=== PATIENT | female | born 1950 | race Caucasian/White ===

== ENCOUNTER 2024-04-16 19:39 | Emergency (ER) | payer MEDICARE, OTHER ==
[~2024-04-16] VITALS: Ht 172.7 cm; Wt 61.7 kg
[2024-04-16 20:00] LABS: BASOPHILS 1.5 % (0-2); EOSINOPHILS 1.6 % (0-6); LYMPHOCYTES 26.3 % (24-44); MCH 30.6 (27-36); MCHC 33.4 g/dl (30-36); MCV 91.8 fl (81-99); MONOCYTES 6.1 % (0-12); NEUTROPHILS 64.5 % (39-80); PLATELET COUNT 346 K/uL (140-440); RBC 5.23 M/ul (4.3-5.7); RDW 14.7 (10.5-15.0)
[2024-04-16] MEDS ORDERED: LORazepam 2 MG/ML VIAL IV ONE (20:00)
[2024-04-16 20:18] LABS: ALBUMIN 3.7 g/dL (3.4-5.0); ALBUMIN/GLOBULIN RATIO 0.88 (1.1-2.4); ANION GAP 18.1 (7-21); BILIRUBIN, TOTAL 0.8 ng/dL (0.2-1.0); BUN/CREATININE RATIO 10.2 (6.0-28.6); CALCIUM 9.4 mg/dL (8.5-10.1); CREATININE, SERUM 1.47 mg/dL (0.55-1.02); MAGNESIUM 1.9 mg/dL (1.8-2.4); POTASSIUM 4.1 mmol/L (3.5-5.1); PROTEIN, TOTAL 7.9 g/dL (6.4-8.2)
[2024-04-16 20:45] LABS: INFLUENZA B NAA NEGATIVE (NEGATIVE); RESPIRATORY SYNCYTIAL VIR NAA NEGATIVE (NEGATIVE)
[2024-04-16] MEDS ORDERED: LACTATED RINGER'S 1,000 ML IV ONE (21:00)
--- OUTSIDE RECORDS SUMMARY | 2024-04-16 21:23 | XMS ---
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 E.DAnum VISIT COUNT (12 MO.) 2 Daron Jurado ([place]) [address] ([place]) TOTAL 4 NOTE: Visits indicate total known visits. ED/UCC VISIT TRACKING (12 MO.) 04/16/2024 19:40 [facility] [place] TYPE: Emergency COMPLAINT: - SOB 04/04/2024 17:02 [facility] [place] ([place]) TYPE: Emergency DIAGNOSES: - Auditory hallucinations - Delusional disorders - Hypokalemia - altered mental - Altered Mental Status 02/08/2024 16:51 [facility] ([place]) TYPE: Emergency DIAGNOSES: - Presence of right artificial knee joint - Sprain of unspecified site of right knee, initial encounter - Knee pain - Knee Swelling 05/24/2023 11:08 [facility] ([facility]) TYPE: Emergency DIAGNOSES: - Epigastric pain - Low back pain, unspecified - Unspecified urinary incontinence - Back Pain - Incontinence - Incontinence, bilat. leg cramps, sent by express - Leg Pain INPATIENT VISIT TRACKING (12 MO.) 04/05/2024 18:51 [facility] TYPE: Psychiatric Services DIAGNOSES: 0. Major depressive disorder, recurrent, severe with psychotic symptoms 1. Major depressive disorder, recurrent, severe with psychotic symptoms 2. Essential (primary) hypertension 2. Headache, unspecified 2. Hypothyroidism, unspecified 2. Suicidal ideations [email or web address]
[2024-04-16 22:14] LABS: BILIRUBIN, URINE POSITIVE (negative); BLOOD/HGB, URINE NEGATIVE (Negative); KETONE, URINE TRACE (Negative); LEUK ESTERASE, URINE NEGATIVE (negative); NITRITE, URINE NEGATIVE (negative)
[2024-04-16 23:00] VITALS: BP 121/62
[2024-04-16 23:04] LABS: AMPHETAMINES, URINE NEGATIVE (NEGATIVE); BARBITURATES, URINE NEGATIVE (NEGATIVE); BENZODIAZEPINE, URINE NEGATIVE (NEGATIVE); BUPRENORPHINE, URINE NEGATIVE (NEGATIVE); CANNABINOID, URINE NEGATIVE (NEGATIVE); ECSTASY, URINE NEGATIVE (NEGATIVE); FENTANYL, URINE NEGATIVE (NEGATIVE); METHADONE, URINE NEGATIVE (NEGATIVE); OPIATES, URINE NEGATIVE (NEGATIVE); OXYCODONE, URINE NEGATIVE (NEGATIVE); PHENCYCLIDINE, URINE NEGATIVE (NEGATIVE)
[2024-04-16 23:15] LABS: COCAINE, URINE NEGATIVE (NEGATIVE)
== END 2024-04-16 23:00 | disposition home or self-care (01) ==
LOC: ED 19:39
PROVIDERS: Internal Medicine
DX: F41.0 Panic disorder [episodic paroxysmal anxiety] (principal); Z88.0 Allergy status to penicillin; Z88.2 Allergy status to sulfonamides
CPT/HCPCS: 36415; 71045; 80053; 80307; 81003; 83735; 84484; 85025; 87502; 96374; 99285-25; J2060; J7121; U0002